=== PATIENT | female | born 2000 | race Caucasian/White ===

== ENCOUNTER → 2020-01-27 | Outpatient (CLI) | payer OTHER | LOC: ZCOL.LAB 12:55 | DX: Z20.828 Contact with and (suspected) exposure to other viral communicable diseases (principal) ==

== ENCOUNTER 2021-04-28 07:04 | Day surgery (SDC) | payer BC, OTHER ==
[~2021-04-28] VITALS: Ht 167.6 cm; Wt 77.2 kg
[2021-04-28 07:27] VITALS: BP 116/74; PULSE 81; TEMP 98.1
[2021-04-28] MEDS ORDERED: BIRTH CONTROL PO (08:20)
[2021-04-28] MEDS ORDERED: ESTARYLLA 35 MC1 TAB PO (08:21)
[2021-04-28 08:40] VITALS: BP 116/58; PULSE 85; TEMP 97.3
--- NOTE | 2021-04-28 08:40 | NUR ---
Pt to [facility], alert and oriented x3 and denies pain. VSS. Given water and a muffin. Calls boyfriend and he is on his way up. Call light in reach. Dr. Sanchez in to talk with pt.
[2021-04-28 08:55] VITALS: BP 105/69; PULSE 72
--- NOTE | 2021-04-28 08:55 | NUR ---
Pt's boyfriend here. VSS. Denies needs. Call light in reach.
[2021-04-28 09:10] VITALS: BP 110/73; PULSE 72
--- NOTE | 2021-04-28 09:15 | NUR ---
Discharge instructions provided to pt, understanding verbalized, IV discontinued to right hand. Pt gets dressed.
--- NOTE | 2021-04-28 09:23 | NUR ---
Pt taken via wheelchair to private car and left in care of her boyfriend.
[2021-04-28 13:45] VITALS: BP 132/78; PULSE 85
== END 2021-04-28 09:23 | disposition home or self-care (01) ==
LOC: SDCO 07:04
DX: K29.50 Unspecified chronic gastritis without bleeding (principal); K62.89 Other specified diseases of anus and rectum; K59.00 Constipation, unspecified; I77.4 Celiac artery compression syndrome; R19.8 Other specified symptoms and signs involving the digestive system and abdomen; G47.00 Insomnia, unspecified; R63.5 Abnormal weight gain; M25.50 Pain in unspecified joint; F41.9 Anxiety disorder, unspecified; Z79.899 Other long term (current) drug therapy
CPT/HCPCS: J2704; J7030